=== PATIENT | male | born 1990 | race Caucasian/White ===

== ENCOUNTER 2018-05-26 10:44 | Emergency (ER) | payer OTHER ==
[2018-05-26] MEDS ORDERED: SODIUM CHLORIDE 0.9% (FLUSH) 10 ML SYG IV PRN (11:13)
[2018-05-26] MEDS ORDERED: SODIUM CHLORIDE 0.9% 1000ML 1,000 ML IVS PRN (11:13)
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
[2018-05-26] MEDS ORDERED: MORPHINE SULFATE INJ 10 MG/ML VIAL IV ONE (13:00)
[2018-05-26] MEDS ORDERED: ONDANSETRON INJ 4 MG/2 ML VIAL IV ONE (13:01)
[2018-05-26 13:37] VITALS: BP 141/87; TEMP 97.2; O2SAT 98
== END 2018-05-26 13:31 ==
LOC: ER 10:44
DX: T68.XXXA Hypothermia, initial encounter (principal); S32.010A Wedge compression fracture of first lumbar vertebra, initial encounter for closed fracture; R41.82 Altered mental status, unspecified; M25.521 Pain in right elbow; Z87.891 Personal history of nicotine dependence; X58.XXXA Exposure to other specified factors, initial encounter; Y92.9 Unspecified place or not applicable
CPT/HCPCS: 36415; 70450; 71045; 71260; 72125; 72170; 73080; 74177; 80053; 80320; 82150; 83690; 85025; 85610; 85730; 93005; J2270; J2405; J7030

== ENCOUNTER → 2018-06-02 | Outpatient (CLI) | payer OTHER ==
--- NOTE | 2018-06-02 15:49 | RAD ---
EXAM DESCRIPTION: Radiographs of the right Shoulder: CLINICAL HISTORY: PAIN COMPARISON: None TECHNIQUE: AP internal external rotation images. FINDINGS: No fracture right shoulder. Normal bone density. AC joint negative. Glenohumeral joint unremarkable. No abnormal radiodense objects in the soft tissues or joint spaces. IMPRESSION: No radiographic evidence of acute bony or joint margin abnormality. Electronically signed by: Damon Neumann MD 06/02/2018 3:48 PM CDT
--- NOTE | 2018-06-02 16:19 | MRI ---
EXAM DESCRIPTION: Lumbar Spine w/o Contrast : Magnetic Resonance Imaging. CLINICAL HISTORY: FIRST LUMBAR VERTEBRA FX COMPARISON: LUMBAR TECHNIQUE: Multiplanar, multiple standard sequences, non contrast MRI, lumbar spine. FINDINGS: Depression of the anterior L1 vertebral body with irregularity of the anterior cortex suggesting a fracture. Marrow edema in the superior two thirds of the vertebral body and extending into the right pedicle. Anterior vertebral body height is 1.6 cm compared to 2.4 cm at T12. 2 mm retropulsion of the superior endplate. Conus terminates just above the retropulsion of the canal is mildly narrowed. Minimal desiccation of the posterior T12-L1 disc but no bulging. No foraminal stenosis bilaterally. Posterior elements unremarkable. L5-S1: Minimal disc desiccation and minimal disc space loss. Posterior midline 5 mm focal bulge or small protrusion abutting the thecal sac and the bilateral S1 nerves. Moderate canal narrowing. Disc also encroaching on the bilateral foramina more on the right than the left with borderline stenosis and compromise of the right L5 nerve. Posterior elements unremarkable. L4-5: Normal disc signal with disc space preserved. Posterior elements unremarkable. Canal and foramina are patent. L3-4: Normal disc signal with disc space preserved. Posterior elements unremarkable. Canal and foramina are patent. L2-3: Normal disc signal with disc space preserved. Posterior elements unremarkable. Canal and foramina are patent. L1-2: Normal disc signal with disc space preserved. Posterior elements unremarkable. Canal and foramina are patent. L1-L4 levoscoliosis. Paravertebral soft tissues are unremarkable below L1.. Normal marrow signal in the remaining vertebral bodies and the posterior elements. Vertebral bodies are not compressed at any levels. IMPRESSION: 1. Posterior midline bulge versus small protrusion of the L5-S1 disc. Abutting the thecal sac and the descending S1 nerve roots. Encroaching on the bilateral foramen with possible impingement of the exiting right L5 nerve. Bilateral foraminal borderline stenosis. Moderate canal narrowing. 2. Approximately 35% anterior compression of the L1 vertebral body with marrow edema indicating subacute fracture more on the right than the left with involvement also of the right pedicle. Posterior retropulsion but no compromise of the conus or thecal sac. No foraminal stenosis T12-L1 or disc herniation. CRITICAL COMMUNICATION: The critical value was discussed directly by phone with Dr. Jeison Rae at approximately 1605 hours, on June 02, 2018. Electronically signed by: Damon Neumann MD 06/02/2018 4:18 PM CDT
== END ==
LOC: MRI 11:00
PROVIDERS: ATTEND Family Medicine
DX: S32.019A Unspecified fracture of first lumbar vertebra, initial encounter for closed fracture (principal); M25.519 Pain in unspecified shoulder